=== PATIENT | male | born 2000 | race Caucasian/White ===

== ENCOUNTER 2025-02-26 15:08 | Emergency (ER) | payer SELFPAY ==
[2025-02-26] MEDS: Diphtheria,Pertussis(Acell),Tetanus Vaccine 0.5 ML Syringe IM ONE (16:36)
== END 2025-02-26 17:01 | disposition home or self-care (01) ==
LOC: MW.ED 15:08
DX: S61.412A Laceration without foreign body of left hand, initial encounter (principal); Z23 Encounter for immunization; Z75.3 Unavailability and inaccessibility of health-care facilities; W26.8XXA Contact with other sharp object(s), not elsewhere classified, initial encounter; Y93.89 Activity, other specified
CPT/HCPCS: 12002; 90471; 90715; 99282; J2003